=== PATIENT | female | born 1970 | race Caucasian/White ===

== ENCOUNTER → 2021-03-21 | Day surgery (SDC) | payer OTHER ==
[~2021-03-21] VITALS: Ht 172.7 cm; Wt 171.3 kg
[~2021-03-21] MED LIST: DOXY40CP PO; GLYCOPYRROLATE 1 MG/5 ML VIAL. ONE; HYDR-2145 PO; HYDROmorphone 2 MG/ML VIAL IVP PRN; IV RINGERS,LACTATED 1000ML 1,000 ML IV SCH; LIDOCAINE 2% PF 5 ML VIAL. ONE; MORPHINE SULFATE 2 MG/ML INJ. IVP PRN; PROCHLORPERAZINE 10 MG/2 ML VIAL. IVP PRN; PROPOFOL 10 MG/ML (20ML) VIAL. IV ONE; SEMA1PEN3 SQ; fentaNYL PF VIAL 100 MCG/2 ML VIAL IVP PRN
[2021-03-21 08:06] VITALS: BP 162/91
[2021-03-21 10:08] VITALS: BP 142/94
--- NOTE | 2021-03-22 00:03 | CONS ---
DATE OF CONSULTATION: 03/21/2021 GI CONSULTATION REFERRING PHYSICIAN: Melody Freitas MD HISTORY OF PRESENT ILLNESS: A 51-year-old female with past medical history significant for hypertension as well as diabetes, is seen for screening colon, bowel habits are regular without diarrhea or constipation. There has been no melena and/or hematochezia. Weight and appetite are stable. Family history is positive only for colon polyps, but negative for colon cancer. She also reports reflux despite taking omeprazole. She has never had upper endoscopy. There is no dysphagia. Risk factors for reflux are positive for caffeine and she is a social drinker, but nonsmoker. PAST MEDICAL HISTORY: Diabetes, hypertension. ALLERGIES: None. MEDICATIONS: Include doxycycline, hydrochlorothiazide, Ozempic. FAMILY HISTORY: Significant for colon polyps, diabetes, and [place]. PAST SURGICAL HISTORY: . REVIEW OF SYSTEMS: Per records. PHYSICAL EXAMINATION: GENERAL: Reveals a well-nourished, well-developed female, alert, cooperative, in no acute distress. VITAL SIGNS: Temperature is 97.4, pulse 70, respiratory rate 20. LUNGS: Clear. CARDIOVASCULAR: Reveals S1, S2, without S3, S4 or appreciable murmur. ABDOMEN: Reveals a soft abdomen, normal bowel sounds. No hepatosplenomegaly. EXTREMITIES: Reveals no cyanosis, clubbing or edema. IMPRESSION: 1. Colorectal screening is warranted at this time. Risks and benefits of procedure including risk of hemorrhage and perforation for operation have been discussed. The patient is willing to proceed. 2. Reflux refractory despite medical therapy with omeprazole. Differential includes Schmitz's, achalasia, peptic ulcer disease, gastroparesis. Therefore, we will recommend upper endoscopy to further assess. Risks and benefits were discussed and patient is willing to proceed at this time. CHALINO/CARLOTA/JESUS DR: Jamie TID: [id number]
--- NOTE | 2021-03-24 17:06 | PATHOLOGY ---
[facility] Accession Number: [id number] . 01 Material submitted: . esophagus - DISTAL ESOPHAGUS BIOPSY. Modifiers: distal . 01 Clinical history: . GERD, SCREENING EGD . 02 Diagnosis: Esophageal biopsies, distal esophagus: - Reflux esophagitis. . ([facility]:mm; 03/24/2021) [facility] 03/24/2021 1059 Local . 02 Comment: Sections of the distal esophageal biopsy reveal multiple segments of largely tangentially-oriented hyperplastic squamous esophageal mucosa. The findings are consistent with reflux esophagitis. There is no evidence of Schmitz's change, dysplasia, or malignancy. . ([facility]:mml; 03/24/2021) . 02 Electronically signed: . Alexandre Medina MD, Pathologist NPI- [id number] . 01 Gross description: . The specimen is received in formalin, labeled "Rey Diaz, distal esophagus BX". It consists of multiple white irregular soft tissue fragments ranging from 0.1-0.4 cm in greatest dimension. The specimen is entirely [place] [facility] [place] . ([facility]; 03/21/2021) [facility] 03/21/2021 1844 Local . 02 Pathologist provided ICD-10: K21.00 . 02 CPT . 003601 Specimen Comment: A courtesy copy of this report has been sent to [phone] Specimen Comment: Report sent to DR. LAWLER Performed at: 01 [facility] [address] [facility] [address], [place] [id number] MD Jude Verdugo MD Phone: [phone] Performed at: 02 [facility] [address] [place], [place] [id number] MD Alexandre Medina MD Phone: [phone]
== END | disposition home or self-care (01) ==
LOC: ENDOS 07:42
PROVIDERS: ATTEND Internal Medicine Gastroenterology
DX: Z12.11 Encounter for screening for malignant neoplasm of colon (principal); K64.0 First degree hemorrhoids; K21.00 Gastro-esophageal reflux disease with esophagitis, without bleeding; K31.89 Other diseases of stomach and duodenum; K63.89 Other specified diseases of intestine; I10 Essential (primary) hypertension; E11.9 Type 2 diabetes mellitus without complications; Z79.899 Other long term (current) drug therapy; Z98.890 Other specified postprocedural states; Z72.89 Other problems related to lifestyle; Z83.71 Family history of colonic polyps; Z82.49 Family history of ischemic heart disease and other diseases of the circulatory system; Z83.3 Family history of diabetes mellitus
CPT/HCPCS: 43239; 45378; J2704; J3490; 88305

== ENCOUNTER → 2021-04-18 | Outpatient (CLI) | payer OTHER ==
[2021-03-21 10:08] VITALS: BP 142/94
[~2021-04-18] MED LIST changes: +BARIUM SULFATE 105% 1,900 ML SUSP PO ONE; -GLYCOPYRROLATE 1 MG/5 ML VIAL. ONE; -HYDROmorphone 2 MG/ML VIAL IVP PRN; -IV RINGERS,LACTATED 1000ML 1,000 ML IV SCH; -LIDOCAINE 2% PF 5 ML VIAL. ONE; -MORPHINE SULFATE 2 MG/ML INJ. IVP PRN; -PROCHLORPERAZINE 10 MG/2 ML VIAL. IVP PRN; -PROPOFOL 10 MG/ML (20ML) VIAL. IV ONE; -fentaNYL PF VIAL 100 MCG/2 ML VIAL IVP PRN
--- NOTE | 2021-04-18 17:15 | RAD ---
DG BARIUM ENEMA: 04/18/2021 8:05 AM INDICATION: Incomplete colonoscopy. COMPARISON: None available. FINDINGS: A preliminary conservator artifacts view of the abdomen and pelvis was obtained and revealed no abnormalities. Barium enema was then performed according to the air-contrast technique. Barium and air were instille d into the rectum in a retrograde fashion with filling of the colon from the rectum to the cecum . Th e mucosal pattern appears unremarkable. There is no evidence of diverticulosis or inflammatory bowel disease. No fungating masses or annular constricting lesions are identified. Fluoroscopy time: 3.7 minutes Number of images: 53 IMPRESSION: 1. No suspicious fungating mass or annular constricting lesion. Electronically signed by: Renée Harris MD (04/18/2021 5:12 PM) [id number]
== END ==
LOC: RAD 08:00
PROVIDERS: ATTEND Internal Medicine Gastroenterology
DX: K21.00 Gastro-esophageal reflux disease with esophagitis, without bleeding (principal); E11.8 Type 2 diabetes mellitus with unspecified complications; I10 Essential (primary) hypertension
CPT/HCPCS: 74270